=== PATIENT | female | born 1980 | race Caucasian/White ===

== ENCOUNTER → 2024-10-15 | Outpatient (CLI) | payer OTHER ==
[~2024-10-15] MED LIST: ACET500T PO; DOXY100T PO; FIOR1CAP PO; IBUP-1114 PO; IBUP600T26 PO; IBUP800T PO; MAPA500T2 PO; METH0.2T4 PO; METHERGINE PO; MOM30SS PO; PERC10TA9 PO; PERC5TAB8 PO; PREN1TAB11 PO; PRENTAB66 PO
== END ==
LOC: M WUC 11:07
PROVIDERS: ATTEND Nurse Practitioner Family
DX: R05.9 Cough, unspecified (principal)